=== PATIENT | female | born 1940 | race Two or more races ===

== ENCOUNTER 2024-10-27 08:59 | Emergency (ER) | payer OTHER ==
[2024-10-27] MEDS ORDERED: TOPROL XL50 M1 PO (09:35)
[2024-10-27] MEDS ORDERED: ROSUVASTATIN-E1 EACH PO (09:35)
[2024-10-27] MEDS ORDERED: JARDIANCE10 MG PO (09:35)
[2024-10-27] MEDS ORDERED: ASA81 MG PO (09:35)
[2024-10-27 09:36] VITALS: BP 136/79; O2SAT 96
[2024-10-27] MEDS ORDERED: CEFTRIAXONE SODIUM 1,000 MG VIAL IM ONE (09:45)
[2024-10-27] MEDS ORDERED: DUI500 PO (09:53)
[2024-10-27] MEDS ORDERED: TETANUS & DIPHTHERIA TOX,ADULT 0.5 ML VIAL IM ONE (10:00)
[2024-10-27] MEDS ORDERED: LIDOCAINE HCL 1% 10ML VIAL ONE (10:25)
[2024-10-27] MEDS ORDERED: CEFTRIAXONE SODIUM 1,000 MG VIAL ONE (10:25)
[2024-10-27] MEDS ORDERED: TETANUS DIPHTHERIA TOX. ADSOR 5 ML VIAL IM ONE (10:25)
== END 2024-10-27 10:56 | disposition home or self-care (01) ==
LOC: ER 09:02
DX: S51.811A Laceration without foreign body of right forearm, initial encounter (principal); W18.39XA Other fall on same level, initial encounter; Y93.89 Activity, other specified; Y92.89 Other specified places as the place of occurrence of the external cause; Y99.9 Unspecified external cause status; I10 Essential (primary) hypertension